=== PATIENT | male | born 1995 | race Asian ===

== ENCOUNTER 2024-01-07 14:20 | Emergency (ER) | payer OTHER ==
[~2024-01-07] VITALS: Ht 165.1 cm; Wt 97.5 kg
[2024-01-07 14:35] VITALS: BP 142/95; PULSE 86; RESP 16; TEMP 98; O2SAT 97
[2024-01-07 14:52] LABS: APPEARANCE,URINE CLEAR (CLEAR); BILIRUBIN,URINE NEGATIVE (NEGATIVE); BLOOD, URINE NEGATIVE (NEGATIVE); COLOR,URINE YELLOW (YELLOW); LEUKOCYTE ESTERASE ,URINE NEGATIVE (NEGATIVE); NITRITE, URINE NEGATIVE (NEGATIVE); PROTEIN,URINE NEGATIVE (NEGATIVE); UGLUCOSE NEGATIVE (NEGATIVE); UROBILINOGEN,URINE 0.2 EU/dL (0.2 - 1)
[2024-01-07] MEDS ORDERED: ONDA-188 PO (15:25)
== END 2024-01-07 15:30 | disposition home or self-care (01) ==
LOC: MED 14:20
DX: R30.0 Dysuria (principal); R03.0 Elevated blood-pressure reading, without diagnosis of hypertension; Z79.899 Other long term (current) drug therapy
CPT/HCPCS: 81003; 87491; 99283